=== PATIENT | female | born 1985 | race Caucasian/White ===

== ENCOUNTER 2016-09-11 13:13 | Emergency (ER) | payer OTHER ==
[2016-09-11] MEDS ORDERED: Phenazopyridine HCl 97.5 MG TABLET ONE ×2 (13:53→14:02)
[2016-09-11] MEDS ORDERED: Ibuprofen 200 MG TAB ONE (13:53)
[2016-09-11 14:14] LABS: Bilirubin Negative (Negative); Blood, Urine Trace (Negative); Glucose, Urine (Dipstick) Negative (Negative); Ketone, Urine Trace mg/dL (Negative); Nitrite Negative (Negative); Protein, Urine (Dipstick) Trace mg/dL (Neg-Trace); Urobilinogen 0.2 mg/dL (0.2-1.0)
[2016-09-11 14:17] LABS: Bacteria/HPF 3+ HPF (None Seen); WBC/HPF 21-50 HPF (0-3)
[2016-09-11] MEDS ORDERED: Cephalexin 500 MG CAP ONE (15:02)
== END 2016-09-11 15:10 | disposition home or self-care (01) ==
LOC: NAV ERS 13:13
DX: N39.0 Urinary tract infection, site not specified (principal); F41.9 Anxiety disorder, unspecified; F17.210 Nicotine dependence, cigarettes, uncomplicated; Z79.899 Other long term (current) drug therapy
CPT/HCPCS: 81003; 81015; 81025; 99283

== ENCOUNTER 2020-12-23 16:32 | Emergency (ER) | payer OTHER, SELFPAY | END 2020-12-23 17:37 | disposition home or self-care (01) | LOC: NAV ERS 16:32 | DX: J06.9 Acute upper respiratory infection, unspecified (principal); F17.210 Nicotine dependence, cigarettes, uncomplicated | CPT/HCPCS: 99283 ==

== ENCOUNTER 2021-06-17 08:00 | Emergency (ER) | payer SELFPAY | END 2021-06-17 09:00 | disposition home or self-care (01) | LOC: NAV ERS 08:00 | DX: L25.9 Unspecified contact dermatitis, unspecified cause (principal); F17.210 Nicotine dependence, cigarettes, uncomplicated | CPT/HCPCS: 99282 ==